=== PATIENT | female | born 1945 | race Caucasian/White ===

== ENCOUNTER → 2018-01-16 | Outpatient (CLI) | payer MEDICARE, OTHER ==
[2018-01-17 10:09] LABS: Alt. alternata IgE Class CLASS 0; Alternaria alternata IgE <0.35 kU/L (<0.35); Asperg. fumagatus IgE <0.35 kU/L (<0.35); Asperg. fumagatus IgE Class CLASS 0; Aureo. pullulans IgE <0.35 kU/L (<0.35); Birch(Com.Silvr) IgE <0.35 kU/L (<0.35); Birch(Com.Silvr) IgE Class CLASS 0; Candida albicans IgE Class CLASS 0; Clad herbarum IgE <0.35 kU/L (<0.35); Cottonwood IgE <0.35 kU/L (<0.35); Epicoccum purpurascens Class CLASS 0; Epicoccum purpurascens IgE <0.35 kU/L (<0.35); Maple (Box Elder) IgE <0.35 kU/L (<0.35); Maple (Box Elder) IgE Class CLASS 0; Mucor racemosus IgE <0.35 kU/L (<0.35); Mucor racemosus IgE Class CLASS 0; Oak IgE <0.35 kU/L (<0.35); Rhizopus nigricans IgE <0.35 kU/L (<0.35); S.rostrata/Helminth Class CLASS 0; S.rostrata/Helminth IgE <0.35 kU/L (<0.35); Sycamore(Mpl.Lf) IgE <0.35 kU/L (<0.35); Walnut Tree IgE <0.35 kU/L (<0.35); Walnut Tree IgE Class CLASS 0; White Ash IgE Class CLASS 0
[2018-01-17 10:10] LABS: Cat Epith & Dander IgE <0.35 kU/L (<0.35); Cat Epith & Dander IgE Class CLASS 0; Cockroach IgE <0.35 kU/L (<0.35); Com. Pigweed IgE <0.35 kU/L (<0.35); Com. Pigweed IgE Class CLASS 0; Dermato. Pteronyssinus IgE <0.35 kU/L (<0.35); Dermato. farinae IgE <0.35 kU/L (<0.35); Dermato. farinae IgE Class CLASS 0; Dog Dander IgE <0.35 kU/L (<0.35); English Plantain IgE Class CLASS 0; Johnson Grass IgE Class CLASS 0; Lamb's Quarter IgE <0.35 kU/L (<0.35); Lamb's Quarter IgE Class CLASS 0; Timothy Grass IgE <0.35 kU/L (<0.35)
== END | disposition home or self-care (01) ==
LOC: LABWHC1 10:22
PROVIDERS: ATTEND Otolaryngology
DX: L50.0 Allergic urticaria (principal); J30.89 Other allergic rhinitis; B44.89 Other forms of aspergillosis
CPT/HCPCS: 36415; 86003

== ENCOUNTER → 2018-04-14 | Outpatient (CLI) | payer MEDICARE, OTHER | END | disposition home or self-care (01) | LOC: LABWHC1 10:38 | PROVIDERS: ATTEND Orthopaedic Surgery | DX: Z01.812 Encounter for preprocedural laboratory examination (principal) | CPT/HCPCS: 87070 ==

== ENCOUNTER 2018-05-09 10:55 | Inpatient (IN) | payer MEDICARE, OTHER ==
[2018-05-04 15:12] VITALS: BMI 26.5
--- NOTE | 2018-05-08 09:35 | HP ---
HISTORY AND PHYSICAL CHIEF COMPLAINT: Left knee pain. HISTORY OF PRESENT ILLNESS: The patient is a 72-year-old retired female who presents with progressive left knee pain, worsening over the past several years. She has pain with weightbearing activities and at night. She has tried injections along with medications with only partial temporary relief. She notes the pain significantly limits her function and activities. PAST MEDICAL HISTORY: Significant for arthritis, prolapsed bladder and vaginal atrophy. PAST SURGICAL HISTORY: Significant for left knee arthroscopy, right total hip replacement and right knee arthroscopy. CURRENT MEDICATIONS: 1. Probiotic. 2. Aleve. She denies drug allergies. FAMILY HISTORY: Significant for heart disease and cancer. SOCIAL HISTORY: Significant for social alcohol use. 16 POINT REVIEW OF SYSTEMS: Otherwise reviewed and is noncontributory. PHYSICAL EXAMINATION: On examination, the patient is approximately 5 foot 2, 151 pounds of mesomorphic habitus. HEENT exam is nonfocal. Neck is supple. She has painless passive motion of her left hip. Straight leg raise is negative. Active motion left knee -10 to 135 degrees of flexion. She is tender about the medial joint line. She has a mild effusion. Collaterals are stable, Blanca is negative, Carlos's is equivocal. She has genu varum alignment. Her distal neurovascular exam appears intact in the left lower extremity. Weightbearing, notch, lateral and Merchant views of the left knee obtained in the office show severe medial and patellofemoral compartment narrowing. IMPRESSION: Left knee severe medial and patellofemoral compartment osteoarthrosis-symptomatic. RECOMMENDATIONS: I talked to the patient at length regarding her condition and treatment options. At this point, she is quite symptomatic despite conservative measures. We will plan to proceed with left total knee arthroplasty. We will institute DVT prophylaxis postoperatively. Risks and benefits were discussed at length in layman's terms. MMODL / IJN: [id number] /
[~2018-05-09 10:55] MED LIST: ACETAMINOPHEN TAB 500 MG TAB PO ONE; MELOXICAM 7.5 MG TAB PO ONE; TRANEXAMIC ACID 1,000 MG in SODIUM CHLORIDE 0.9% 50 ML IVPB ONE; ceFAZolin IN SWFI 2 GM/20 ML SYRINGE IVP ONE
[2018-05-09] MEDS ORDERED: DEXAMETHASONE SOD PHOSPHATE 10 MG/ML 1 ML VIAL IV ONE (12:30)
[2018-05-09] MEDS ORDERED: MIDAZOLAM 2 MG/2 ML VIAL IV PRN (12:30)
[2018-05-09] MEDS ORDERED: HYDROmorphone 1 MG/ML 1 ML SYRINGE IVP PRN ×3 (12:30→15:59)
[2018-05-09] MEDS ORDERED: SCOPOLAMINE 1.5MG/72HR PATCH TRANSDERM ONE (12:30)
[2018-05-09] MEDS ORDERED: LIDOCAINE 1% 20 ML VIAL (10MG/ML) FOR IV START INTRADERMA PRN (12:30)
[2018-05-09] MEDS ORDERED: ONDANSETRON 4 MG/2 ML VIAL IVP ONE (12:30)
[2018-05-09] MEDS: LACTATED RINGERS 1,000 ML IV SCH (12:32)
[2018-05-09] MEDS ORDERED: fentaNYL (PF) 50 MCG/ML 2 ML AMP IVP ONE (13:00)
[2018-05-09] MEDS ORDERED: ROPIVACAINE 246.25 MG, EPINEPHrine 0.5 MG, KETOROLAC 30 MG, cloNIDine HCL/PF 80 MCG, WA... MISCELLANE ONE ×5 (13:14)
[2018-05-09] MEDS ORDERED: ROPIVACAINE 1,100 MG, SODIUM CHLORIDE 0.9% 500 ML 330 ML MISCELLANE PRN ×2 (13:29)
--- NOTE | 2018-05-09 13:31 | P.ONQ ---
Anesthesiology Proc Note - PNB - Peripheral Nerve Block Performed Left Adductor Canal Infusion Time Out Performed: Yes Procedure Start Time: 13:00 Indication: Acute Post-Operative Pain, Analgesia Specifically requested for management of pain by DrAmie: Guilherme Rocha Sedation Type: Sedate with meaningful contact maintained Preparation: Sterile Prep Position: Supine Catheter Depth at Skin (cm): 6 Catheter: Indwelling Needle Types: Other (see comment) (Pajunk) Needle Size: 100mm (4") Needle Gauge: 18 Technique: Ultrasound Injectate: 0.5% Ropivacaine (see comment for volume) (20cc) Blood Aspirated: No Pain Paresthesia on Injection Noted: No Resistance on Injection: Normal Events: Uneventful and Well Tolerated
[2018-05-09] MEDS ORDERED: ePHEDrine SULFATE/0.9% NACL/PF 50 MG/5 ML SYRINGE IV ONE (14:10)
[2018-05-09] MEDS ORDERED: TRANEXAMIC ACID 1,000 MG/10 ML VIAL ONE (14:10)
[2018-05-09] MEDS ORDERED: SODIUM CHLORIDE 0.9% 100 ML BAG ONE (14:10)
[2018-05-09] MEDS ORDERED: ROPIVACAINE 5 MG/ML 30 ML VIAL ONE (14:10)
[2018-05-09] MEDS ORDERED: fentaNYL (PF) 50 MCG/ML 2 ML AMP ONE (14:10)
[2018-05-09] MEDS ORDERED: PROPOFOL 10 MG/ML 20 ML VIAL IV ONE (14:10)
[2018-05-09] MEDS ORDERED: MIDAZOLAM 2 MG/2 ML VIAL ONE (14:10)
[2018-05-09] MEDS ORDERED: KETAMINE 10 MG/ML 20 ML VIAL ONE (14:10)
[2018-05-09] MEDS ORDERED: ceFAZolin 3,000 MG in SODIUM CHLORIDE 0.9% IRRIGATIO 3,000 ML IRRIGATION ONE (14:42)
[2018-05-09] MEDS ORDERED: LACTATED RINGERS 1,000 ML IV ONE (15:35)
[2018-05-09] MEDS ORDERED: ONDANSETRON 4 MG/2 ML VIAL IVP PRN (15:59)
[2018-05-09] MEDS ORDERED: traMADol 50 MG TAB PO PRN (15:59)
[2018-05-09] MEDS ORDERED: HYDROcodone/APAP 5-325MG 1 EACH TAB PO PRN (15:59)
[2018-05-09] MEDS ORDERED: NALOXONE 0.4 MG/ML 1 ML VIAL IV PRN (15:59)
[2018-05-09] MEDS ORDERED: MAGNESIUM HYDROXIDE 2,400 MG/10 ML CUP PO PRN (15:59)
--- NOTE | 2018-05-09 16:14 | P.OP ---
Date of Procedure: 05/09/18 Preoperative Diagnosis: Severe left knee tricompartmental osteoarthrosis Postoperative Diagnosis: Same Procedure(s) Performed: Left total knee arthroplastycruciate retainingcemented Implants: Depuy Attune size 5 cemented femoral component, size 4 cemented tibial component , 9 mm articular surface, 35 mm cemented patellar component. This was a cruciate retaining implant. Anesthesia: spinal Surgeon: Guilherme Rocha Labor Relations Specialist #1: Parviz Abreu Estimated Blood Loss (ml): 50 Pathology: other (Bone fragments) Condition: stable Disposition: PACU Indications for Procedure: The patient's a 72-year-old female who presents with progressive left knee pain secondary to osteoarthrosis despite conservative measures. A discussion of the risks and benefits of operative intervention versus continued conservative measures was made with patient. She opted to proceed with surgery. Operative risks to include infection, neurovascular injury, development of blood clots, possible fracture, possible component loosening and need for subsequent procedures was discussed. Informed consent was obtained. Operative Findings: As below Description of Procedure: The patient was brought to the operating room, and after induction of spinal anesthesia the left lower extremity was prepped and draped in a normal fashion. The tourniquet was inflated to 270 mmHg. A longitudinal incision extending 3 finger breaths above this. We'll patella extending to the medial aspect the tibial tubercle was then made. The skin and subcutaneous tissues were divided sharply. Electrocautery was used for hemostasis. A medial parapatellar arthrotomy was then performed. The medial soft tissues to include the superficial and deep portions of the medial collateral ligament as well as the medial hamstring tendons were elevated subperiosteally. The proximal medial tibia osteophytes were carefully removed. The patella was everted. The knee was flexed. A portion of the retropatellar fat pad was excised sharply. The anterior cruciate ligament was sacrificed. A starting hole was made in the distal femur 1 cm anterior to the posterior cruciate origin. An intramedullary femoral guide was gently inserted planning on 5 valgus distal cut with 9 mm distal resection. The cutting block was pinned in place. The distal cut was then made. The posterior referencing sizing guide was utilized. 3 of external rotation was built into the system and verified off the trans- epicondylar axis and the posterior condyles. I felt size 5 was most appropriate. The cutting block was pinned in place. The anterior, posterior, and chamfer cuts were then made. The bone fragments were removed. A sulcus cut was then made with the appropriate guide. The trial size 5 femoral component was then placed and was fully seated. There was good anterior to posterior and medial to lateral fit. The distal peg holes were then drilled. The trial component was then removed. Attention was then paid towards preparing the proximal tibia. An extra medullary guide was utilized in line with the tibial shaft and second metatarsal distally. A 7 posterior slope was planned. I planned on 2 mm resection from the medial compartment. The cutting block was pinned in place. The proximal tibial cut was then made. The bone was removed in one fragment. The remnants of the medial and lateral menisci were excised the capsule junction with electrocautery. The tibia sized most appropriately at size 4. The posterior osteophytes off the distal femur were carefully removed with a curved osteotome. The trial tibial and femoral components were placed along with a 9 millimeters articular surface. I was able to obtain full flexion and extension with good stability with varus and valgus stress. After several flexion and extension cycles, the tibial rotation was marked with electrocautery in line with the medial one third of the tibial tubercle. Attention was then paid towards preparing the patella. A patella reamer was utilized taking this down to 14 mm of bone stock. A good flush cut was made. The patella sized most appropriately at 35 millimeters. The peg holes were then drilled. The trial component was placed. The knee was taken through a range of motion. I had good patellofemoral tracking with no hands technique. The trial components were then removed. The tibia was prepared in the appropriate rotation with appropriate drill and keel punch. The flexion and extension gaps were checked and felt to be symmetric. The posterior soft tissues were injected with ropivacaine. The bony surfaces were prepared with pulsatile lavage and dried. The deep tibial component was then cemented in place and was fully seated. Excess cement was removed. The femoral component was cemented in place and was fully seated. Again excess cement was removed. The trial 9 millimeters surface was then inserted in the knee was put in full extension. The patella component was cemented in place. After the cement had sufficiently hardened, the knee was again taken through a range of motion. Again there was good stability in flexion and extension with varus and valgus stress. The trial articular surface was then removed. The final articular surface was placed and was impacted. Care was taken to avoid any soft tissue interposition. Pulsatile lavage was again utilized. The tourniquet was deflated with approximately 70 minutes total tourniquet time. There was minimal drainage therefore a deep drain was not placed. The medial parapatellar arthrotomy was then closed with #2 Ethibond suture. The subcutaneous tissues were reapproximated interrupted 2-0 Vicryl sutures. The skin was reapproximated with 3-0 subarticular strata fix suture. Skin tape and adhesive was applied. A sterile dressing was applied. The patient was then awoken from sedation and transferred to recovery room in good condition. Blood loss was estimated at 50 milliliters. No complications were incurred. Sponge and needle counts were correct at the end the case. Jerry NG assisted during the major components this case to include exposure, bone resection, and implantation.
--- NOTE | 2018-05-09 16:28 | XR ---
EXAMINATION TYPE: XR knee limited LT DATE OF EXAM: 05/09/2018 CLINICAL HISTORY: Postoperative evaluation Two views of the left knee are submitted. Identified are changes of total knee arthroplasty with fem oral and tibial components appearing well seated. Postsurgical soft tissue changes are noted. Align ment is anatomic.
[2018-05-09 17:07] VITALS: RESP 16
[2018-05-09] MEDS ORDERED: SENNOSIDES-DOCUSATE SODIUM 1 EACH TAB PO SCH (21:00)
[2018-05-09] MEDS: ceFAZolin IN SWFI 2 GM/20 ML SYRINGE IVP SCH (21:59)
[2018-05-10] MEDS: HYDROcodone/APAP 5-325MG 1 EACH TAB PO PRN ×2 (04:43→10:36)
[2018-05-10] MEDS: ceFAZolin IN SWFI 2 GM/20 ML SYRINGE IVP SCH (04:46)
--- NOTE | 2018-05-10 06:39 | CONS ---
CONSULTATION DATE OF CONSULTATION: 05/09/2018 REASON FOR CONSULTATION: Medical management requested by Dr. Rocha. CONSULTATION: This is a very pleasant 72-year-old patient who follows with Dr. Tipton. Has undergone left total knee arthroplasty. Postprocedure pain is controlled. No nausea, vomiting. Did tolerate her supper. Lying in bed. Chronic stable medical conditions include osteoarthritis, prolapsed bladder, uses a pessary and chronic constipation. Pain is controlled. No cardiac history. REVIEW OF SYSTEMS: CONSTITUTIONAL: None. HEENT: None. RESPIRATORY: None. CARDIOVASCULAR: None. GASTROINTESTINAL: Chronic constipation, takes MiraLAX. GENITOURINARY: Urinary incontinence. MUSCULOSKELETAL: Arthritic pain in different joints. DERMATOLOGICAL: None. HEMATOLOGIC: None. LYMPHATICS: None. PSYCHIATRY: None. NEUROLOGICAL: None. PAST MEDICAL HISTORY: Past medical history of prolapsed bladder, uses a pessary, osteoarthritis, chronic constipation. PAST SURGICAL HISTORY: Right hip replacement, bilateral knee arthroscopy, right thumb trigger finger. SOCIAL HISTORY: Patient smoked about half a pack a day for 25 years, stopped in 2005. Drinks about average of 5 drinks a week. Lives with her . FAMILY HISTORY: Family history of breast cancer. HOME MEDICATIONS: 1. Naproxen 220 mg b.i.d. p.r.n. 2. Probiotic 1 capsule p.o. daily. 3. Emergency C one tablet p.o. daily. ALLERGIES: None. PHYSICAL EXAMINATION: On examination, temperature 97.4, pulse 91, respirations 16, blood pressure 128/82, pulse ox 96% on room air. GENERAL APPEARANCE: Average build, lying in bed, comfortable, awake. EYES: Pupils equal. Conjunctivae normal. Wearing eyeglasses. HENT: External appearance of nose and ears normal. Oral cavity normal. NECK: JVD not raised. Mass not palpable. RESPIRATORY: Effort normal. Lungs are clear. CARDIOVASCULAR: First and second sounds normal. No edema. ABDOMEN: Soft, nontender. Liver and spleen not palpable. LYMPHATIC: No lymph node palpable in the neck or axillae. PSYCHIATRY: Alert and oriented x3. Mood and affect normal. NEUROLOGICAL: Pupils equal. Cranial nerves grossly intact. Power and sensation grossly intact. MUSCULOSKELETAL: Evidence of OA especially in the hands. INVESTIGATIONS: No blood work. ASSESSMENT: 1. Left total knee arthroplasty. 2. Primary osteoarthritis. 3. Chronic constipation, takes laxatives, idiopathic. 4. Prolapsed urinary bladder for which patient uses a pessary. Chronic urinary incontinence from the same. PLAN: Patient's pain is well controlled. The patient is on Xarelto for DVT prophylaxis. Getting some IV fluids. We will start the patient on Metamucil. Care was discussed with the patient. Questions were answered. Thank you Dr. Rocha. AARON / BHUPENDRA: [id number] /
[2018-05-10] MEDS: LACTATED RINGERS 1,000 ML IV SCH (07:52)
[2018-05-10 08:31] VITALS: PULSE 74
[2018-05-10 08:49] LABS: Basophils % (A) 0 %; Eosinophils % (A) 0 %; HCT 33.5 % (34.0-46.0); HGB 10.8 gm/dL (11.4-16.0); Lymphocytes # (A) 1.5 k/uL (1.0-4.8); Lymphocytes % (A) 15 %; MCH 30.8 pg (25.0-35.0); MCHC 32.1 g/dL (31.0-37.0); MCV 95.9 fL (80.0-100.0); Mean Platelet Volume 6.9; Monocytes # (A) 0.4 k/uL (0-1.0); Monocytes % (A) 4 %; Neutrophils # (A) 8.1 k/uL (1.3-7.7); Neutrophils % (A) 80 %; Platelet Count 226 k/uL (150-450); RBC 3.49 m/uL (3.80-5.40); RDW 13.6 % (11.5-15.5); WBC 10.1 k/uL (3.8-10.6)
[2018-05-10] MEDS ORDERED: PSYLLIUM HUSK 100% 6 GM PACKET PO SCH (09:00)
[2018-05-10] MEDS ORDERED: RIVAROXABAN 10 MG TAB PO SCH (09:00)
--- NOTE | 2018-05-10 09:36 | P.PN ---
Progress Note - Text 05/10 704am 72 yr year-old female status post total knee replacement by Dr. Rocha. Patient has an On-Q pump for postop pain control with the solution running at 8 mL an hour with a pain score of 4. She's been out of bed and ambulating well. Plan to continue On-Q pump infusion
--- NOTE | 2018-05-10 12:01 | P.PN ---
Subjective Progress Note Date: 05/10/18 Principal diagnosis: Status post left total knee arthroplasty Patient is seen today resting in her hospital bed, she appears comfortable. Her pain is well-controlled. She is urinating on her own. Denies any headaches , lightheadedness, chest pain or shortness of breath. Objective - Vital Signs Vital signs: Vital Signs Temp 97.4 F L 05/10/18 08:00 Pulse 74 05/10/18 08:00 Resp 16 05/10/18 01:10 BP 102/68 05/10/18 08:00 Pulse Ox 96 05/10/18 08:00 Intake & Output 05/09/18 05/10/18 05/10/18 18:59 06:59 18:59 Intake Total 1051 560 Output Total 50 Balance 1001 560 Weight 68.039 kg Intake: IV 1051 Intake, IV Titration 560 Amount Lactated Ringers 1,000 ml 560 @ 0 mls/hr IV .[facility] Rx#:[id number] Output: Estimated Blood Loss 50 Other: # Voids 1 - Exam Left lower extremity: Incision is clean, dry, and intact. The exofin fusion tape is in good condition. There is minimal soft tissue swelling and ecchymosis surrounding the medial and lateral aspects of the incision. Calf is soft, no tenderness with palpation. Plantar flexion, dorsiflexion, EHL, FHL are intact. Sensory exam to light touch throughout the extremity is intact, dorsal pedis pulses 2+. - Labs CBC & Chem 7: 05/10/18 06:33 Labs: Abnormal Lab Results - Last 24 Hours (Table) 05/10/18 Range/Units 06:33 RBC 3.49 L (3.80-5.40) m/uL Hgb 10.8 L (11.4-16.0) gm/dL Hct 33.5 L (34.0-46.0) % Neutrophils # 8.1 H (1.3-7.7) k/uL Assessment and Plan Plan: Assessment: Postoperative day #1 status post left total knee arthroplasty Plan: Pain control, continue current oral medication GI and DVT prophylaxis, plan for Eliquis 2.5mg bid for 2 weeks Medical recommendations Wound care instructions were discussed Home therapy and nursing after discharge Discharge planning: Plan for discharge home today Time with Patient: Less than 30
--- NOTE | 2018-05-10 12:16 | P.DS ---
Providers Date of admission: 05/09/18 11:44 Expected date of discharge: 05/10/18 Attending physician: Guilherme Rocha Consults: 05/09/18 15:59 Consult Physician Routine Consulting Provider: Dany Tipton Reason/Comments: medical management Do you want consulting provider notified?: Yes Primary care physician: Dany Tipton Hospital Course: Date of admission: 05/09/2018 Date of discharge: 05/10/2018 Admission diagnosis: Status post left total knee arthroplasty Discharge diagnosis: Same Attending physician: Dr. Rocha Surgical procedures: Left total knee arthroplasty Brief history: Patient is a 72-year-old female with a history of with progressive primary left knee osteoarthritis. At this point patient has failed conservative treatment measures and has opted to proceed with a elective left total knee arthroplasty. Hospital course: Details of patient's surgery can be found in operative report. Patient tolerated the procedure well and was subsequently transported to orthopedic floor. Patient's orthopeidc and medical care was provided daily. Patient had daily laboratory tests performed for evaluation of overall blood counts. Patient had daily physical therapy to include strengthening range of motion as well as education with walker ambulation. Patient had daily CPM usage as part of their physical therapy program. Patient was treated with Xarelto for their postoperative DVT prophylaxis during their inpatient stay. Patient was noted to have a relatively uneventful postoperative course. Patient reported satisfactory pain control with oral pain medications by postoperative day 0. Patient showed satisfactory progress with physical therapy. Patient moved steadily through the program and had no difficulty meeting the goals by postoperative day 1. Given patient's otherwise satisfactory course and having met physical therapy goals, plan is to discharge patient home on postoperative day 1. Discharge condition/disposition: Patient will be discharged home in stable condition. Discharge medications: Instructions are given on resumption of patient's normal daily medications per primary care recommendation, in addition patient will be prescribed Honeydew 5 mg/325 mg, tramadol 50 mg, Eliquis 2.5mg. Discharge instructions: 1. Wound care and infection precautions, keep incision dry and covered while showering, no lotions, creams, moisturizers. No soaking, tubs, pools, hottubs. Do not scrub over the incision. 2. Weight-bear as tolerated with walker / cane until follow-up. 3. Ice and elevate when necessary. Do not exceed 20 minutes per hour with ice pack. 4. Utilize compression sleeve until seen at first follow up appointment. 5. Visiting nursing care. 6. Home physical therapy including home CPM. 7. Pain meds and anticoagulants per prescription. 8. Pain medication has potential to cause constipation. Increase oral fluid and fiber intake. Contact primary care provider if you have not had a bowel movement within 48 hours after discharge 9. No anti-inflammatory medication until discussed at first post operative visit, this including Motrin, Aleve, Mobic, Diclofenac. 10. Follow up in office at 2 weeks postop with Jerry Abreu PA-C 11. Follow up with your primary care doctor 7-10 days after discharge. 12. Contact [facility] with any questions, . Procedures: Left total knee arthroplasty Patient Condition at Discharge: Good Plan - Discharge Summary Discharge Rx Participant: Yes New Discharge Prescriptions: New Psyllium Husk (with Sugar) [Metamucil Powder] 6 gm PO DAILY #1 gm Apixaban [Eliquis] 2.5 mg PO BID #28 tab Hydrocodone/Acetaminophen [Honeydew 5-325] 1 - 2 each PO Q6HR PRN #40 tab PRN Reason: Pain traMADol HCl [Ultram] 50 mg PO Q6H PRN #28 tab PRN Reason: Pain Continue L.acidoph,Paracasei, B.lactis [Probiotic] 1 cap PO DAILY No Action Naproxen Sodium [Aleve] 220 mg PO BID PRN PRN Reason: Pain Emergency C 1 tab PO DAILY Discharge Medication List Emergency C 1 tab PO DAILY 05/04/18 [History] L.acidoph,Paracasei, B.lactis [Probiotic] 1 cap PO DAILY 05/04/18 [History] Naproxen Sodium [Aleve] 220 mg PO BID PRN 05/04/18 [History] Psyllium Husk (with Sugar) [Metamucil Powder] 6 gm PO DAILY #1 gm 05/09/18 [Rx] Apixaban [Eliquis] 2.5 mg PO BID #28 tab 05/10/18 [Rx] Hydrocodone/Acetaminophen [Honeydew 5-325] 1 - 2 each PO Q6HR PRN #40 tab 05/10/18 [Rx] traMADol HCl [Ultram] 50 mg PO Q6H PRN #28 tab 05/10/18 [Rx] Follow up Appointment(s)/Referral(s): [facility] [NON-STAFF] - [facility]eded [facility] [[facility]] - As Needed Parviz Abreu, PAC [PHYSICIAN [employer]CEL[employer] BUILDUP ASSISTANT] - 2 Weeks Activity/Diet/Wound Care/Special Instructions: Orthopedic Discharge Instructions: 1. Wound care and infection precautions, keep incision dry and covered while showering, no lotions, creams, moisturizers. No soaking, pools, hot tubs. Do not scrub over incision. 2. Weight-bear as tolerated with walker / cane until follow-up. 3. Ice and elevate when necessary. Do not exceed 20 minutes per hour with ice pack. 4. Utilize compression sleeve until seen at first follow up appointment. 5. Pain meds and anticoagulants per prescription. 6. Pain medication has potential to cause constipation. Increase oral fluid and fiber intake. Contact primary care provider if you have not had a bowel movement within 48 hours after discharge. 7. No anti-inflammatory medication until discussed at first post operative visit, this including Motrin, Aleve, Mobic, Diclofenac, Aspirin. 8. Follow up in office at 2 weeks postop with Jerry Abreu PA-C 9. Follow up with your primary care doctor 7-10 days after discharge. 10. Contact [facility] with any questions, . Discharge Disposition: HOME WITH HOME HEALTH SERVICES
[2018-05-10 15:34] VITALS: BP 108/68; TEMP 97.8
--- NOTE | 2018-05-10 22:33 | PN ---
PROGRESS NOTE DATE OF SERVICE: 05/10/2018 PRESENTING COMPLAINT: Left knee surgery. INTERVAL HISTORY: Patient is doing well, up in the hallway today with a walker, feeling well. No new issues. Pain is controlled. No nausea or vomiting. Did tolerate her breakfast. REVIEW OF SYSTEMS: Done for constitutional, cardiovascular, GI, pulmonary; relevant findings as above. CURRENT MEDICATIONS: Reviewed. PHYSICAL EXAMINATION: Temperature 97.4, pulse 74, respiration 16, blood pressure 102/68, pulse ox 96%. GENERAL APPEARANCE: Comfortable. EYES: Pupils equal. Conjunctivae normal. NECK: JVD not raised. Mass not palpable. RESPIRATORY: Effort normal. Lungs are clear. CARDIOVASCULAR: First and second sounds normal. No edema. ABDOMEN: Soft, non-tender. Liver and spleen not palpable. PSYCHIATRY: Alert and oriented x3. Mood and affect normal. INVESTIGATIONS: White count 10.1, hemoglobin 10.8. ASSESSMENT: 1. Left total knee arthroplasty. 2. Primary osteoarthritis. 3. Chronic constipation; takes laxatives; idiopathic. 4. Prolapsed urinary bladder, for which patient uses a pessary. 5. Chronic urinary incontinence from above. PLAN: Stable. Continue current medication and treatment plan. Should follow up with PCP. MMODL / IJN: [id number] /
== END 2018-05-10 16:29 | disposition home health service (06) | DRG 470 ==
LOC: 2ORMAIN 11:44 → 4SSUR 16:23
PROVIDERS: ADMIT Orthopaedic Surgery; ATTEND Orthopaedic Surgery
PROC: 0SRD0J9 Replacement of Left Knee Joint with Synthetic Substitute, Cemented, Open Approach (ICD-10-PCS; principal; 2018-05-09 13:50)
DX: M17.12 Unilateral primary osteoarthritis, left knee (principal); E04.1 Nontoxic single thyroid nodule; E78.5 Hyperlipidemia, unspecified; K59.09 Other constipation; N81.10 Cystocele, unspecified; N39.498 Other specified urinary incontinence; N95.2 Postmenopausal atrophic vaginitis; Z79.899 Other long term (current) drug therapy; Z96.641 Presence of right artificial hip joint; Z87.891 Personal history of nicotine dependence; Z80.3 Family history of malignant neoplasm of breast
CPT/HCPCS: 85025; 88300

== ENCOUNTER → 2018-11-07 | Outpatient (CLI) | payer MEDICARE, OTHER ==
--- NOTE | 2018-11-08 12:13 | MM ---
Reason for exam: screening (asymptomatic). Last mammogram was performed 1 year and 6 months ago. History: Patient is postmenopausal. Family history of breast cancer in mother at age 72. Benign excisional biopsy of both breasts, 1999. Benign excisional biopsy of both breasts, 1995. Took estrogen for 8 years beginning at age 50. Took progesterone for 4 years. Physical Findings: A clinical breast exam by your physician is recommended on an annual basis and results should be correlated with mammographic findings. MG 3D Screening Mammo W/Cad Bilateral CC and MLO view(s) were taken. Prior study comparison: May 11, 2017, bilateral MG 3d screening mammo w/cad. April 07, 2016, bilateral MG 3d screening mammo w/cad. The breast tissue is heterogeneously dense. This may lower the sensitivity of mammography. There are benign appearing round calcifications bilaterally. There is no discrete abnormality. ASSESSMENT: Benign, BI-RAD 2 RECOMMENDATION: Routine screening mammogram of both breasts in 1 year.
== END | disposition home or self-care (01) ==
LOC: RADMAMWWP 07:26
PROVIDERS: ATTEND Family Medicine
DX: Z12.31 Encounter for screening mammogram for malignant neoplasm of breast (principal)
CPT/HCPCS: 77063; 77067

== ENCOUNTER → 2020-03-18 | Outpatient (CLI) | payer MEDICARE, OTHER | END | disposition home or self-care (01) | LOC: LABPAT 14:20 | PROVIDERS: ATTEND Obstetrics & Gynecology | DX: Z53.9 Procedure and treatment not carried out, unspecified reason (principal) | CPT/HCPCS: 80051; 81001; 82565; 84520; 85025; 86850; 86900; 86901; 87086; 93005 ==

== ENCOUNTER 2020-03-24 05:41 | Day surgery (SDC) | payer MEDICARE, OTHER ==
[2020-03-18 15:41] LABS: Basophils # (A) 0.1 k/uL (0-0.2); Basophils % (A) 1 %; Eosinophils # (A) 0.2 k/uL (0-0.7); Eosinophils % (A) 3 %; HCT 39.8 % (34.0-46.0); Lymphocytes # (A) 2.7 k/uL (1.0-4.8); Lymphocytes % (A) 41 %; MCH 31.3 pg (25.0-35.0); MCHC 32.6 g/dL (31.0-37.0); MCV 96.2 fL (80.0-100.0); Mean Platelet Volume 7.1; Monocytes # (A) 0.2 k/uL (0-1.0); Monocytes % (A) 3 %; Neutrophils # (A) 3.4 k/uL (1.3-7.7); Neutrophils % (A) 51 %; Platelet Count 215 k/uL (150-450); RBC 4.14 m/uL (3.80-5.40); WBC 6.6 k/uL (3.8-10.6)
[2020-03-18 15:53] LABS: Appearance,Urine Clear (Clear); Bilirubin,Urine Negative (Negative); Blood,Urine Trace (Negative); Color,Urine Yellow; Glucose,Urine (UA) Negative (Negative); Ketones,Urine 1+ (Negative); Leukocyte Esterase,Urine Small (Negative); Mucus,Urine Rare /hpf; Nitrite,Urine Negative (Negative); PH, Urine 5.5 (5.0-8.0); Protein,Urine Negative (Negative); RBC,Urine 4 /hpf (0-5); Specific Gravity,Urine 1.015 (1.001-1.035); Urobilinogen,Urine <2.0 mg/dL (<2.0); WBC,Urine 4 /hpf (0-5)
[2020-03-18 15:56] LABS: African American GFR (CKD) >90 (>60 ml/min/1.73 sqM); Anion Gap 5 mmol/L; Blood Urea Nitrogen 12 mg/dL (7-17); Carbon Dioxide 27 mmol/L (22-30); Chloride 105 mmol/L (98-107); Non-African American GFR(CKD) 79 (>60 ml/min/1.73 sqM); Potassium 4.3 mmol/L (3.5-5.1); Sodium 137 mmol/L (137-145)
[2020-03-19 14:28] VITALS: BMI 27.7
[2020-03-24] MEDS ORDERED: ONDANSETRON 4 MG/2 ML VIAL IVP ONE (06:02)
[2020-03-24] MEDS ORDERED: HYDROmorphone 0.5 MG/0.5 ML SYRINGE IVP PRN (06:02)
[2020-03-24] MEDS ORDERED: DEXAMETHASONE SOD PHOSPHATE 10 MG/ML 1 ML VIAL IV ONE (06:02)
[2020-03-24] MEDS ORDERED: MIDAZOLAM 2 MG/2 ML VIAL IV PRN (06:02)
[2020-03-24] MEDS ORDERED: ONDANSETRON 4 MG/2 ML VIAL ONE (06:04)
[2020-03-24] MEDS ORDERED: LIDOCAINE 1% (10MG/ML) FOR IV START INTRADERMA ONE (06:10)
[2020-03-24] MEDS ORDERED: LACTATED RINGERS 1,000 ML IV ONE (06:10)
[2020-03-24] MEDS ORDERED: DEXAMETHASONE SOD PHOS (MDV) 100 MG/10 ML VIAL IVP ONE (06:10)
[2020-03-24] MEDS ORDERED: fentaNYL (PF) 50 MCG/ML 2 ML AMP INTRATHECA ONE (06:58)
[2020-03-24] MEDS ORDERED: SUCCINYLCHOLINE CHLORIDE 100 MG/5 ML SYR IV ONE (07:26)
[2020-03-24] MEDS ORDERED: fentaNYL (PF) 50 MCG/ML 2 ML AMP ONE (07:26)
[2020-03-24] MEDS ORDERED: MIDAZOLAM 2 MG/2 ML VIAL ONE (07:26)
[2020-03-24] MEDS ORDERED: PROPOFOL 10 MG/ML 20 ML VIAL IV ONE (07:26)
[2020-03-24] MEDS ORDERED: LIDOCAINE 1% INJ 10MG/ML (20 ML MDV) ONE (07:26)
[2020-03-24] MEDS ORDERED: VASOPRESSIN 20 UNIT/ML 1 ML VIAL SQ ONE (07:52)
[2020-03-24] MEDS ORDERED: BACITRACIN ZINC 500 UNIT/GM OINT 28.4 GM TUBE TOPICAL ONE ×2 (07:53→08:32)
[2020-03-24] MEDS ORDERED: diphenhydrAMINE 50 MG/ML 1 ML VIAL IVP PRN (08:53)
[2020-03-24] MEDS ORDERED: METOCLOPRAMIDE 5 MG/ML 2 ML VIAL IVP PRN (08:53)
[2020-03-24] MEDS ORDERED: SIMETHICONE 80 MG CHEWABLE PO PRN (08:53)
[2020-03-24] MEDS ORDERED: ONDANSETRON 4 MG/2 ML VIAL IVP PRN (08:53)
--- NOTE | 2020-03-24 08:54 | P.OP ---
Date of Procedure: 03/24/20 Preoperative Diagnosis: Symptomatic uterine prolapse and cystocele Postoperative Diagnosis: Same, normal-appearing ovaries bilaterally. Mild rectocele. Procedure(s) Performed: Vaginal hysterectomy, anterior colporrhaphy. Anesthesia: GETA Surgeon: Adriana Betancourt Photographer'S Model #1: Stephanie Heaton Estimated Blood Loss (ml): 50 IV fluids (ml): 600 Urine output (ml): 110 Pathology: other (Cervix and uterus) Condition: stable Disposition: PACU Operative Findings: Normal-appearing ovaries bilaterally Description of Procedure: Patient is brought to the operating suite where a general anesthetic is administered after spinal with Duramorph was given in the preoperative area. Antibiotics are given. The appropriate timeout is performed to assure proper patient and procedural identification. Patient is placed in the dorsal lithotomy position and the cervix, vagina, and perineal bodies are all prepped and draped in the usual sterile fashion. The bladder is drained for approximately 110 mL of clear yellow urine. Weighted speculum was placed into the vagina. Anterior lip of the cervix is grasped with a double-tooth tenaculum. Cervix is circumferentially injected with dilute Pitressin. A [place] blade scalpel is used to incise the mucosa circumferentially with a V positioning at 6:00. Sponge rolled finger is used to sweep the mucosa well from the operative plane. Care is taken to at all times keep you cholecystectomy way to avoid bladder and/or ureteral injury. Peritoneum is entered at 6:00 and suture tied with 2-0 Vicryl held with a hemostat. The large billed speculum is then placed into the peritoneal cavity. Baltazar clamp is used over the right uterosacral cardinal ligament complex, this is clamped cut and suture ligated and held with a hemostat. Same procedure is carried out contralaterally. Uterine vasculature is skeletonized, clamped cut and suture ligated. 2 additional pedicles are taken superior to the vessels. Anterior peritoneum was entered at 12:00. Uterus is "walked out" posteriorly. Baltazar clamps are used across the final pedicles and the uterus and cervix are removed. 0 Vicryl sutures used across these pedicles, they are suture ligated, flashed, and retied for excellent hemostasis. Sponge stick is then used and both ovaries are noted to be high in the peritoneal cavity and within normal limits to inspection, left in situ per the patient's wishes. Vacuum is now changed to the shallow billed speculum. The 20 peritoneal stitch is brought around in a circumferential fashion to close the peritoneum. There is no bowel or bladder involvement. The uterosacral cardinal ligaments are now brought across to incorporate the opposite ligament as well as vaginal mucosa. An additional [id number]-vb-[id number] suture used inferior to this to close the vaginal cuff. The anterior mucosa is held with Allis clamps and the anterior repair is now commenced. The mucosa is injected in the midline with the same dilute Pitressin solution. Metzenbaum scissors are used to undermine the mucosa and it is incised to approximately 1.5 cm inferior to the urethra. A sponge rolled finger is used to sweep the mucosa from the underlying fascial plane. Israel catheter is then placed. 2-0 Vicryl sutures used in an interrupted fashion to bring the fascial edges together in the midline. The mucosa is trimmed with Metzenbaum scissors. 2-0 Vicryl is used in a running fashion now to close the anterior repair. Hemostasis is excellent. Israel is noted to be draining clear urine. The vagina is packed with a 1 inch iodophor gauze with bacitracin. All sponge needle and enhancement counts are correct. Patient is brought back to the recovery room in very good condition with stable vital signs including a blood pressure 110/60, pulse 55, 98% O2 saturation.
[2020-03-24] MEDS ORDERED: MORPHINE SULFATE 2 MG/ML SYRINGE IVP PRN (10:12)
[2020-03-24] MEDS ORDERED: NALOXONE 0.4 MG/ML 1 ML VIAL IV PRN (10:12)
[2020-03-24] MEDS: LACTATED RINGERS 1,000 ML IV SCH (11:50)
[2020-03-24] MEDS: IBUPROFEN 600 MG TAB PO PRN (20:52)
[2020-03-24 22:53] VITALS: BP 117/74; PULSE 83; RESP 18; TEMP 98.5
[2020-03-25] MEDS: LACTATED RINGERS 1,000 ML IV SCH (06:54)
--- NOTE | 2020-03-25 07:51 | P.DS ---
Providers Date of admission: 03/24/20 Expected date of discharge: 03/25/20 Attending physician: Adriana Betancourt Primary care physician: Stated None Hospital Course: This is a 74-year-old female who presented with symptomatic uterine prolapse and cystocele. After thorough discussion, and after years of pessary use, she elected to proceed with surgical repair. Please see dictated history and physical for details. Patient underwent a vaginal hysterectomy and anterior colporrhaphy under my care yesterday. She did well intraoperatively, ovaries were left in situ per our preoperative discussion. Please see dictated delivery note for details. This morning the patient is doing well. Vaginal packing and Israel catheter had been removed. Diet has been advanced. She is allowed to shower. There is only scant vaginal drainage. Patient has no pain. She is judged to be in very good condition for discharge home. We will measure first voided and postvoid residual. If less than 100, she will go home later today. She will follow-up with me in the office in 2 weeks. She is reminded no intercourse, tampons, douching, heavy lifting, no driving. In 2 weeks we will discuss vaginal estrogen. She will call with any fevers shakes or chills, vaginal bleeding, with any pain not alleviated by Aleve, or indeed with any concerns. She is in very good condition for discharge home. Assessment: Doing well postoperative day #1 Patient Condition at Discharge: Good Plan - Discharge Summary Discharge Rx Participant: No New Discharge Prescriptions: No Action Loratadine [Claritin] 10 mg PO DAILY Fluticasone Nasal [place] [Flonase Nasal [place]] 2 spr EA NOSTRIL DAILY Discharge Medication List Fluticasone Nasal [place] [Flonase Nasal [place]] 2 spr EA NOSTRIL DAILY 03/19/20 [History] Loratadine [Claritin] 10 mg PO DAILY 03/19/20 [History] Follow up Appointment(s)/Referral(s): Adriana Betancourt MD [STAFF PHYSICIAN] - 2 Weeks Discharge Disposition: HOME SELF-CARE
--- NOTE | 2020-03-25 08:19 | P.PN ---
Progress Note - Text Date:[03/25/2020] Time:[6 58] The patient is status post vaginal hysterectomy. Vital signs stable VAS:[0-10] Patient has no complaints of pain. The patient incurred some minimal itching yesterday, this itching is now subsiding. Pain meds to be managed by service.
[2020-03-25] MEDS: IBUPROFEN 600 MG TAB PO PRN (08:41)
== END 2020-03-25 12:38 | disposition home or self-care (01) ==
LOC: OR 05:41 → 4FBP 08:58 → OR 03-25 12:38
PROVIDERS: ATTEND Obstetrics & Gynecology
DX: N81.4 Uterovaginal prolapse, unspecified (principal); N72 Inflammatory disease of cervix uteri; I10 Essential (primary) hypertension; M19.90 Unspecified osteoarthritis, unspecified site; J30.2 Other seasonal allergic rhinitis; Z98.891 History of uterine scar from previous surgery; Z98.890 Other specified postprocedural states; Z82.49 Family history of ischemic heart disease and other diseases of the circulatory system; Z81.8 Family history of other mental and behavioral disorders; Z80.3 Family history of malignant neoplasm of breast; Z80.41 Family history of malignant neoplasm of ovary; Z80.42 Family history of malignant neoplasm of prostate; Z82.61 Family history of arthritis
CPT/HCPCS: 88305; 58260; 57240; J2250; J1200; J0690; J2405; J2001; J3010; J1100; J0330; J2704; 80051; 81001; 82565; 84520; 85025; 86850; 86900; 86901; 87086; 93005

== ENCOUNTER → 2021-12-17 | Outpatient (CLI) | payer MEDICARE, OTHER ==
[2021-12-17 18:23] LABS: Basophils # (A) 0.07 X 10*3/uL (0.00-0.10); Eosinophils # (A) 0.09 X 10*3/uL (0.04-0.35); Eosinophils % (A) 1.3 %; HCT 42.4 % (37.2-46.3); HGB 13.2 g/dL (12.0-15.0); Immature Grans, Automated 0.4 %; Lymphocytes % (A) 35.2 %; MCHC 31.1 g/dL (32.0-37.0); MCV 96.4 fL (80.0-97.0); Mean Platelet Volume 10.6 fL (9.5-12.2); Monocytes # (A) 0.27 X 10*3/uL (0.20-1.00); NRBC Per 100 WBC 0 /100 WBCS (0.0-0.0); Neutrophils # (A) 3.96 X 10*3/uL (1.80-7.70); Neutrophils % (A) 58.1 %; Platelet Count 244 X 10*3/uL (140-440); RDW 13.3 % (11.5-14.5); WBC 6.82 X 10*3/uL (4.50-10.00)
== END | disposition home or self-care (01) ==
LOC: LABPAT 12:34
PROVIDERS: ATTEND Obstetrics & Gynecology
DX: Z01.818 Encounter for other preprocedural examination (principal); N34.0 Urethral abscess; R94.31 Abnormal electrocardiogram [ECG] [EKG]
CPT/HCPCS: 85025; 93005

== ENCOUNTER → 2022-01-04 | Outpatient (CLI) | payer MEDICARE, OTHER | END | disposition home or self-care (01) | LOC: LABPAT 12:33 | PROVIDERS: ATTEND Orthopaedic Surgery | DX: Z01.812 Encounter for preprocedural laboratory examination (principal); M17.11 Unilateral primary osteoarthritis, right knee | CPT/HCPCS: 87070 ==

== ENCOUNTER 2022-01-12 09:51 | Day surgery (SDC) | payer MEDICARE, OTHER ==
[~2022-01-12 09:51] MED LIST changes: -ACETAMINOPHEN TAB 500 MG TAB PO ONE; +DEXAMETHASONE SOD PHOSPHATE 4 MG/ML 1 ML VIAL IV ONE; +HYDROmorphone 0.5 MG/0.5 ML SYRINGE IVP PRN; +LACTATED RINGERS 1,000 ML IV SCH; +LIDOCAINE 1% (10MG/ML) FOR IV START INTRADERMA PRN; -MELOXICAM 7.5 MG TAB PO ONE; +ONDANSETRON 4 MG/2 ML VIAL IVP ONE; -TRANEXAMIC ACID 1,000 MG in SODIUM CHLORIDE 0.9% 50 ML IVPB ONE; -ceFAZolin IN SWFI 2 GM/20 ML SYRINGE IVP ONE
[2022-01-12] MEDS ORDERED: fentaNYL (PF) 50 MCG/ML 2 ML AMP ONE (11:19)
[2022-01-12] MEDS ORDERED: KETOROLAC 15 MG/ML 1 ML VIAL ONE (11:19)
[2022-01-12] MEDS ORDERED: MIDAZOLAM 2 MG/2 ML VIAL ONE (11:19)
[2022-01-12] MEDS ORDERED: PROPOFOL 10 MG/ML 20 ML VIAL IV ONE (11:19)
[2022-01-12] MEDS ORDERED: LIDOCAINE 2% INJ 20 MG/ML (2 ML VIAL) ONE (11:19)
--- NOTE | 2022-01-12 11:54 | P.OP ---
Date of Procedure: 01/12/22 Preoperative Diagnosis: 5 cm painful right [place]'s gland abscess Postoperative Diagnosis: Same Procedure(s) Performed: Excision right [place]'s gland abscess Anesthesia: DARRIN Surgeon: Adriana Betancourt Estimated Blood Loss (ml): 10 IV fluids (ml): 400 Urine output (ml): 50 Pathology: other (Skeins gland abscess) Condition: stable Disposition: PACU Description of Procedure: Patient is brought to the operating suite where a general anesthetic is administered without difficulty. The extremities are carefully placed in the Romain stirrups. The cervix, vagina, perineal body are all prepped and draped in usual sterile fashion. Antibiotics are given. The appropriate timeout is performed to assure proper patient and procedural identification. The right skeins gland abscess is identified, superficially scored on the labia majora wi th a #15 blade. Allis clamps are used to hold the skin laterally well the abscess is shelled out in its entirety. The abscess is sent to pathology for evaluation. It is noted to be 5-6 cm in length, approximately 2-3 cm in depth. 2-0 Vicryl is used in an interrupted fashion to close the space. 3-0 undyed Vicryl is used in a subcuticular manner to close the skin. Hemostasis is excellent. The anatomy appears normal after procedure. Basic tracing is placed on the wound. All sponge needle and enhancement counts are correct. Patient is brought back to recovery room in very good condition with stable vital signs including blood pressure 91/50, pulse 54, 98% O2 saturation. Toradol is given prior to leaving the operative suite. She will follow-up with me in the office in 2 weeks.
[2022-01-12 12:21] VITALS: TEMP 97.1
[2022-01-12 12:27] VITALS: RESP 16
[2022-01-12] MEDS ORDERED: IV FLUID CONTINUATION 1,000 ML IV ONE (12:44)
[2022-01-12 13:21] VITALS: BP 157/82; PULSE 63
== END 2022-01-12 13:59 | disposition home or self-care (01) ==
LOC: OR 09:51
PROVIDERS: ATTEND Obstetrics & Gynecology
DX: N34.0 Urethral abscess (principal); M85.80 Other specified disorders of bone density and structure, unspecified site; M19.90 Unspecified osteoarthritis, unspecified site; E78.5 Hyperlipidemia, unspecified; N92.1 Excessive and frequent menstruation with irregular cycle; I34.0 Nonrheumatic mitral (valve) insufficiency; Z98.891 History of uterine scar from previous surgery; Z87.891 Personal history of nicotine dependence; Z96.649 Presence of unspecified artificial hip joint; Z90.710 Acquired absence of both cervix and uterus; Z96.659 Presence of unspecified artificial knee joint; Z98.890 Other specified postprocedural states; Z81.8 Family history of other mental and behavioral disorders; Z83.49 Family history of other endocrine, nutritional and metabolic diseases; Z82.61 Family history of arthritis; Z80.3 Family history of malignant neoplasm of breast; Z80.41 Family history of malignant neoplasm of ovary; Z80.42 Family history of malignant neoplasm of prostate
CPT/HCPCS: 88304; 53270; J2250; J1100; J0690; J2405; J3010; J1885; J2704; J2001

== ENCOUNTER → 2024-02-15 | Outpatient (CLI) | payer MEDICARE, BC | END | disposition home or self-care (01) | LOC: LABPAT 09:58 | PROVIDERS: ATTEND Orthopaedic Surgery | DX: Z01.812 Encounter for preprocedural laboratory examination (principal); Z22.322 Carrier or suspected carrier of Methicillin resistant Staphylococcus aureus; M16.12 Unilateral primary osteoarthritis, left hip | CPT/HCPCS: 87070 ==

== ENCOUNTER 2024-03-07 11:08 | Day surgery (SDC) | payer MEDICARE, BC ==
[2024-02-29 14:49] VITALS: BMI 27.0
--- NOTE | 2024-03-07 07:51 | P.HPOR ---
History of Present Illness H&P Date: 03/07/24 Chief Complaint: Left hip pain The patient is a 78-year-old retired female who presents with progressive left hip pain for the past year. She notes anterior thigh and groin pain with weightbearing activities. She notes she's been limping. She tried medications without much relief. She notes daily pain that limits her significantly. Review of Systems Per HPI Past Medical History Past Medical History: Osteoarthritis (OA) Additional Past Medical History / Comment(s): HX OF FX ARMS & LEG A CHILD., ARTHRITIS HANDS & KNEES., fluid in inner ear @times History of Any Multi-Drug Resistant Organisms: None Reported Past Surgical History: Hysterectomy, Joint Replacement, Orthopedic Surgery, Tonsillectomy Additional Past Surgical History / Comment(s): RT HIP REPLACEMENT, LEFT KNEE ARTHROSCOPY, RT THUMB TRIGGER FINGER, franklin knee replaced Past Anesthesia/Blood Transfusion Reactions: No Reported Reaction, Motion Sickness Additional Past Anesthesia/Blood Transfusion Reaction / Comment(s): MOTION SICKNESS IF READING IN CAR. no hx of blood transfusion Smoking Status: Former smoker - Past Family History Mother Family Medical History: Cancer Additional Family Medical History / Comment(s): BREAST CANCER WITH LIVER METS. Medications and Allergies Home Medications Medication Instructions Recorded Confirmed Type Acetaminophen [Tylenol Arthritis] 325 - 650 mg PO Q6H PRN 01/19/22 02/29/24 History Naproxen Sodium [Aleve] 220 mg PO DAILY PRN 01/19/22 02/29/24 History B.coagulans,Subtilis/C/D3/Zinc 2 each PO DAILY 02/29/24 02/29/24 History [Probiotic-Immune Gummy] Escitalopram [Lexapro] 5 mg PO HS 02/29/24 02/29/24 History Ibuprofen [Motrin] 400 mg PO Q8HR PRN 02/29/24 02/29/24 History Allergies Allergy/AdvReac Type Severity Reaction Status Date / Time No Known Allergies Allergy Verified 02/29/24 14:27 Physical Examination - Hip left Gait: antalgic Tenderness with palpation: anterior Pain with motion: internal rotation and hip flexion ROM: flexion: 80 degrees ROM: internal rotation: 0 degrees ROM: external rotation: 60 degrees Strength: flexion: 5/5 Strength: abduction: 5/5 Tests: impingement tests: positive Results The patient is a well-developed well-nourished female proximal a 5 foot 2, 152 pounds. HEENT exam is nonfocal, neck is supple. She has painful passive motion of the left hip. Clinically she has 1/2 cm shortening of the left lower extremity compared to the right. Her distal neurovascular exam appears intact in left lower extremity. - Diagnostic results Hip x-ray: image reviewed (X-rays of the left hip obtain the office show severe osteoarthrosis with bone on bone changes along with subchondral sclerosis) Assessment and Plan Assessment: Left hip severe osteoarthrosissymptomatic Plan: I talked to the patient at length regarding her condition along with treatment options. At this point she is quite symptomatic having pain and mechanical symptoms related to her left hip posterior arthrosis despite conservative measures. After a thorough discussion she opts to proceed with surgery. We'll plan to proceed with left total hip arthroplasty utilizing an anterior approach. Risks and benefits were discussed at length in layman's terms. We will institute DVT prophylaxis postoperatively.
[~2024-03-07 11:08] MED LIST changes: -DEXAMETHASONE SOD PHOSPHATE 4 MG/ML 1 ML VIAL IV ONE; -LACTATED RINGERS 1,000 ML IV SCH; -LIDOCAINE 1% (10MG/ML) FOR IV START INTRADERMA PRN; -ONDANSETRON 4 MG/2 ML VIAL IVP ONE; +TRANEXAMIC 1,000 MG/100ML-NACL 1,000 MG in SALINE 1 100ML.BAG IVPB PRN
[2024-03-07] MEDS: IV FLUID CONTINUATION 1,000 ML IV ONE (11:59)
[2024-03-07] MEDS: ACETAMINOPHEN TAB 500 MG TAB PO PRN (12:04)
[2024-03-07] MEDS: MELOXICAM 7.5 MG TAB PO PRN (12:05)
[2024-03-07] MEDS: ONDANSETRON 4 MG/2 ML VIAL IVP ONE (12:25)
[2024-03-07] MEDS: DEXAMETHASONE SOD PHOSPHATE 4 MG/ML 1 ML VIAL IV ONE (12:25)
[2024-03-07] MEDS: LACTATED RINGERS 1,000 ML IV SCH (12:26)
[2024-03-07] MEDS: MIDAZOLAM 2 MG/2 ML VIAL IV ONE (12:32)
[2024-03-07] MEDS: fentaNYL (PF) 50 MCG/ML 2 ML AMP IVP PRN (12:32)
[2024-03-07] MEDS ORDERED: PHENYLEPHRINE-0.9% NACL SYG 1,000 MCG/10 ML SYRINGE ONE (12:37)
[2024-03-07] MEDS ORDERED: diphenhydrAMINE 50 MG/ML 1 ML VIAL ONE (12:37)
[2024-03-07] MEDS ORDERED: MIDAZOLAM 2 MG/2 ML VIAL ONE (12:37)
[2024-03-07] MEDS ORDERED: fentaNYL (PF) 50 MCG/ML 2 ML AMP ONE (12:37)
[2024-03-07] MEDS ORDERED: PROPOFOL 10 MG/ML 20 ML VIAL IV ONE (12:37)
[2024-03-07] MEDS ORDERED: TRANEXAMIC 1,000 MG/100ML-NACL PREMIX BAG ONE (12:37)
[2024-03-07] MEDS ORDERED: ROPIVACAINE 5 MG/ML 30 ML VIAL ONE (12:37)
[2024-03-07] MEDS ORDERED: SODIUM CHLORIDE 0.9% (PF) 10 ML VIAL ONE (12:37)
[2024-03-07] MEDS: ceFAZolin 1,000 MG in SODIUM CHLORIDE 0.9% 1,000 ML IRRIGATION ONE (13:14)
[2024-03-07] MEDS: LACTATED RINGERS 1,000 ML IV ONE (14:14)
[2024-03-07] MEDS ORDERED: NALOXONE 0.4 MG/ML 1 ML VIAL IV PRN (14:19)
[2024-03-07] MEDS ORDERED: MAGNESIUM HYDROXIDE 2,400 MG/30 ML CUP PO PRN (14:19)
[2024-03-07] MEDS ORDERED: HYDROmorphone 0.5 MG/0.5 ML SYRINGE IVP PRN ×2 (14:19)
[2024-03-07] MEDS ORDERED: hydrOXYzine pamoate 25 MG CAP PO PRN (14:19)
--- NOTE | 2024-03-07 14:41 | P.OP ---
Date of Procedure: 03/07/24 Preoperative Diagnosis: Left hip severe osteoarthrosis Postoperative Diagnosis: Same Procedure(s) Performed: Left total hip arthroplastypress-fitanterior approach Implants: DePuy Corail size 10-125 degreecollared press-fit femoral stem, 36+1.5 cobalt chrome femoral head, 52 mm [place] acetabular shell with neutral polyethylene liner. I did utilize a 6.5 x 25 mm cancellous screw. Anesthesia: regional, spinal Surgeon: Guilherme Rocha Motion Picture Critic #1: Yadiel Baig Estimated Blood Loss (ml): 200 Pathology: none sent Condition: stable Disposition: PACU Indications for Procedure: The patient is a 78-year-old female who presents with progressive left hip pain secondary to osteoarthrosis despite conservative measures. A discussion of the risks and benefits of operative intervention versus continued conservative measures was made with the patient. She opted to proceed with surgery. Operative risks include infection, neurovascular injury, development of blood clots, fracture, leg length discrepancy, possible component loosening/failure and possible need for subsequent procedures was discussed. Informed consent was obtained. Operative Findings: As below Description of Procedure: The patient was brought to the operating room, and after induction of spinal anesthesia was placed supine on the Ashley table. Positioning was checked with fluoroscopy. The left hip was then prepped and draped in a normal fashion. A 12 cm incision was then made starting 2 fingerbreadths distal and 3 finger breaths posterior to the ASIS in line with the proximal femur. The skin was incised sharply. Subcutaneous tissues were divided sharply. Electrocautery was used for hemostasis. The fascia was split in line with skin incision. The interval between the sartorius and tensor fascia jose was then bluntly developed. The posterior fascia was opened with electrocautery. The lateral circumflex vessels were identified and cauterized prior to sectioning. A retractor was placed along the superior femoral neck as well as the anterior acetabular rim. A wide capsulotomy was performed. The neck cut was then made at a 45 angle to the shaft approximately 1 1/2 cm above the level of the lesser trochanter. The head was extracted. Attention was then paid towards preparing the acetabular. Anterior and posterior retractors were placed. The remaining capsular labral tissue sharply debrided clearly defining the acetabular margins. I began reaming with a 45 mm reamer taking care to initially medialize then reaming at 45 of abduction and 20 of anteversion. Sequential reaming is performed up to 51 mm. A trial 52 mm acetabular shell was inserted in the same orientation and was fully seated. There was good rim fit and stability. Positioning was checked with fluoroscopy. The final 52 mm acetabular shell was inserted again at 45 of abduction and 20 of anteversion. This was fully seated. There was good rim fit and stability. I did place a posterior superior 6.5 mm x 25 mm cancellous screw with good purchase for additional fixation. Again fluoroscopy was used to check the adequacy of placement. A neutral polyethylene liner was gently impacted. Care was taken to avoid any soft tissue interposition. Pulsatile lavage was utilized. Attention was then paid towards preparing the proximal femur. The central region was cleared of soft tissue. A canal finder was used to find the femoral canal. Sequential broaching was performed up to size 10 taking care to lateralize proximally. A calcar mill was used to fashion the medial calcar. There was good rotational stability. A 125 degree neck along with a 36 mm +1.5 head was placed. The hip was gently reduced. Fluoroscopy was used to check the adequacy of positioning along with leg lengths. I felt both were good. The hip was gently dislocated. The trial components were removed. The final size 10 collared 125 degree press-fit femoral stem was inserted parallel to the posterior cortex. This was fully seated and there was good rotational stability. A 36 mm +1.5 head was placed. This was gently impacted. The hip was then gently reduced. Final fluoroscopic view showed adequate placement implant along with buddhism of leg length. Stability was checked with 80 of external rotation and 60 of extension of the right hip. The wound was irrigated with sterile lavage. The fascia was closed with running 0 Vicryl suture. There was minimal drainage therefore a deep drain was not placed. The second dose of IV TXA was given. The subcutaneous tissues were reapproximated interrupted 2-0 Vicryl sutures. The skin was reapproximated with 3-0 subcuticular strata fix suture. Skin tape and adhesive was applied. A sterile dressing was applied. The patient was then awoken from sedation and transferred to recovery room in good condition. Blood loss was estimated at 200 mL. No complications were incurred. Sponge and needle counts were correct at the end of the case. Yadiel NG assisted during the major components is case to include exposure, bone resection, implantation, and closure.
--- NOTE | 2024-03-07 14:56 | XR ---
EXAMINATION TYPE: XR Hip Limited LT DATE OF EXAM: 03/07/2024 CLINICAL HISTORY: Postoperative evaluation TECHNIQUE: Single portable view of the left hip was submitted. FINDINGS: Noted are changes of total hip arthroplasty with femoral and acetabular components appearin g well seated. Alignment is anatomic. Postsurgical soft tissue changes are evident. IMPRESSION: Satisfactory postoperative alignment [facility] Za[facility]arreal, , 03/07/2024 2:54 PM
--- NOTE | 2024-03-07 15:25 | FL ---
EXAMINATION TYPE: FL guidance operating room, XR Hip Limited LT DATE OF EXAM: 03/07/2024 2:16 PM COMPARISON: Pre Operative Images if available both CT/MRI or plain film CLINICAL INDICATION: Female, 78 years old with history of Left Hip-Ant; TECHNIQUE: FL guidance operating room, XR Hip Limited LT, multiple fluoroscopic images provided for p rocedure. Total fluoroscopy time: 27 seconds Total submitted images to PACS: 1 DAP: 0.6737 mGym2 Gycm2 uGym2 cGycm2 or equivalent. FINDINGS: Fluoroscopic images during internal fixation/arthroplasty demonstrate fixation hardware in appropriat e position. Hardware appears intact. No immediate complication identified. IMPRESSION: 1. No evidence for intraoperative complication. 2. Please see the operative/procedural note for further details. [facility], , 03/07/2024 3:23 PM
--- NOTE | 2024-03-07 16:11 | P.ANPRN ---
Procedure Note - Anesthesia - Nerve Block Performed Left Phillip Single Time Out Performed: Yes (1231) Date of Procedure: 03/07/24 Procedure Start Time: 12:32 Procedure Stop Time: 12:36 Location of Patient: PreOp Indication: Acute Post-Operative Pain, Requested by Surgeon Specifically requested for management of pain by DrAmie: Guilherme Rocha Sedation Type: Sedate with meaningful contact maintained Preparation: Sterile Prep Position: Supine Catheter: None Needle Types: Pajunk Needle Gauge: 21 Ultrasound used to visualize needle placement: Yes Ultrasound used to observe medication spread: Yes Injectate: 0.5% Ropivacaine (see comment for volume) (30cc) Blood Aspirated: No Pain Paresthesia on Injection Noted: No Resistance on Injection: Normal Image Stored and Saved: Yes Events: Uneventful and Well Tolerated
[2024-03-07] MEDS: fentaNYL (PF) 50 MCG/ML 2 ML AMP IVP STA (16:32)
[2024-03-07] MEDS: HYDROcodone/APAP 5-325MG 1 EACH TAB PO PRN (18:09)
--- NOTE | 2024-03-07 20:24 | P.CONS ---
History of Present Illness - Reason for Consult Consult date: 03/07/24 Medical management Requesting physician: Guilherme Rocha - Chief Complaint Left hip surgery - History of Present Illness This is a pleasant 78-year-old patient who follows with Daisha gibbons [facility] with Dr. Tipton. Patient does take medication for osteoarthritis and anxiety. Denies any cardiac history. Patient has undergone left hip hemiarthroplasty. Postprocedure no nausea vomiting. Pain is controlled. No cardiac symptoms. Patient did eat a very light supper. Review of systems: GEN.: Tired EYES: None HEENT: None NECK: None RESPIRATORY: None CARDIOVASCULAR: None GASTROINTESTINAL: None GENITOURINARY: None MUSCULOSKELETAL: [Joint pains LYMPHATICS: None HEMATOLOGICAL: None PSYCHIATRY: None NEUROLOGICAL: None Social history: Lives with her . Smoked for 25 years less than half a pack a day stopped in 2005. Drinks about 5-7 drinks per week. Physical examination: VITAL SIGNS: 97.5, 83, 16, 111 x 67, 97% room air GENERAL: BMI 27.4, reclining bed awake comfortable. EYES: Pupils equal. Conjunctiva brigido l. HEENT: External appearance of nose and ears normal, oral cavity grossly normal. NECK: JVD not raised; masses not palpable. HEART: First and second heart sounds are normal; no edema. LUNGS: Respiratory rate normal; clear to auscultation. ABDOMEN: Soft, nontender, liver spleen not palpable, no masses palpable. PSYCH: Alert and oriented x3; mood and affect brigido l. MUSCULOSKELETAL:No Clubbing/cyanosis;muscles-grossly intact. OA. Incisional left hip incision site NEUROLOGICAL: Cranial nerves grossly intact; no facial asymmetry, power and sensation grossly intact. LYMPHATICS: No lymph nodes palpable in the axilla and neck Investigations: No labs available Assessment plan: -Left total hip arthroplasty IV cefazolin for infection prophylaxis. Received 1 dose of Decadron. On Xarelto for DVT prophylaxis. -Primary osteoarthritis Use pain medication as needed -Anxiety not otherwise specified Lexapro Care was discussed with the patient. Questions answered. Thank you Dr. Rocha Past Medical History Past Medical History: Osteoarthritis (OA) Additional Past Medical History / Comment(s): HX OF FX ARMS & LEG A CHILD., ARTHRITIS HANDS & KNEES., fluid in inner ear @times History of Any Multi-Drug Resistant Organisms: None Reported Past Surgical History: Hysterectomy, Joint Replacement, Orthopedic Surgery, Tonsillectomy Additional Past Surgical History / Comment(s): RT HIP REPLACEMENT, LEFT KNEE ARTHROSCOPY, RT THUMB TRIGGER FINGER, franklin knee replaced Past Anesthesia/Blood Transfusion Reactions: No Reported Reaction, Motion Sickness Additional Past Anesthesia/Blood Transfusion Reaction / Comm: MOTION SICKNESS IF READING IN CAR. no hx of blood transfusion Past Psychological History: Anxiety Smoking Status: Former smoker Past Alcohol Use History: Occasional Additional Past Alcohol Use History / Comment(s): SMOKED FOR 25 YEARS, < 1/2 PPD., QUIT 2006 YEARS AGO. DRINKS APPROX 5-7 DRINKS PER WEEK. Past Drug Use History: None Reported - Past Family History Mother Family Medical History: Cancer Additional Family Medical History / Comment(s): BREAST CANCER WITH LIVER METS. Medications and Allergies Home Medications Medication Instructions Recorded Confirmed Type Acetaminophen [Tylenol Arthritis] 325 - 650 mg PO Q6H PRN 01/19/22 03/07/24 History Naproxen Sodium [Aleve] 220 mg PO DAILY PRN 01/19/22 03/07/24 History B.coagulans,Subtilis/C/D3/Zinc 2 each PO DAILY 02/29/24 03/07/24 History [Probiotic-Immune Gummy] Escitalopram [Lexapro] 5 mg PO HS 02/29/24 03/07/24 History Ibuprofen [Motrin] 400 mg PO Q8HR PRN 02/29/24 03/07/24 History Allergies Allergy/AdvReac Type Severity Reaction Status Date / Time No Known Allergies Allergy Verified 03/07/24 11:47 Physical Exam Vitals: Vital Signs Temp Pulse Resp BP Pulse Ox 03/07/24 16:48 83 111/67 97 03/07/24 16:31 65 131/77 98 03/07/24 16:17 63 129/74 99 03/07/24 16:01 70 131/82 03/07/24 15:43 97.5 F L 68 17 115/75 97 03/07/24 15:30 56 L 18 119/52 96 03/07/24 15:15 57 L 18 123/56 96 03/07/24 15:00 60 18 109/57 96 03/07/24 14:45 68 18 111/51 96 03/07/24 14:35 97.3 F L 74 14 95/55 96 03/07/24 12:40 74 16 115/74 95 03/07/24 12:20 97.2 F L 70 16 132/82 97 Intake and Output 03/07/24 03/07/24 03/07/24 06:59 14:59 22:59 Intake Total 1151 Output Total 200 Balance 951 Intake: IV 1151 Output: Estimated Blood Loss 200 Other: Weight 69 kg 69 kg
[2024-03-07] MEDS: ESCITALOPRAM 5 MG TAB PO SCH (21:22)
[2024-03-07] MEDS: SENNOSIDES-DOCUSATE SODIUM 1 EACH TAB PO SCH (21:22)
[2024-03-08] MEDS: HYDROcodone/APAP 7.5-325MG 1 EACH TAB PO PRN (00:58)
[2024-03-08 08:31] VITALS: BP 105/69; PULSE 69; RESP 17; TEMP 97.9
[2024-03-08 08:38] LABS: Basophils # (A) 0.02 X 10*3/uL (0.00-0.10); Basophils % (A) 0.2 %; Eosinophils # (A) 0 X 10*3/uL (0.04-0.35); Eosinophils % (A) 0 %; HCT 31.1 % (37.2-46.3); HGB 10.2 g/dL (12.0-15.0); Lymphocytes # (A) 1.65 X 10*3/uL (0.90-5.00); Lymphocytes % (A) 18.8 %; MCH 30.4 pg (27.0-32.0); MCHC 32.8 g/dL (32.0-37.0); MCV 92.8 FL (80.0-97.0); Mean Platelet Volume 10.5 FL (9.5-12.2); Monocytes # (A) 0.72 X 10*3/uL (0.20-1.00); Monocytes % (A) 8.2 %; NRBC Per 100 WBC 0 X 10*3/uL (0.00-0.01); Neutrophils # (A) 6.36 X 10*3/uL (1.80-7.70); Neutrophils % (A) 72.5 %; Platelet Count 194 X 10*3/uL (140-440); RBC 3.35 X 10*6/uL (4.10-5.20); RDW 13.3 % (11.5-14.5); WBC 8.78 X 10*3/uL (4.50-10.00)
[2024-03-08] MEDS: RIVAROXABAN 10 MG TAB PO SCH (10:03)
[2024-03-08] MEDS: LACTOBACILLUS ACIDOPHILUS/PECT 1 EACH CAPSULE PO SCH (10:04)
--- NOTE | 2024-03-08 11:23 | P.DS ---
Providers Date of admission: 03/07/2024 Expected date of discharge: 03/08/24 Attending physician: Guilherme Rocha Consults: 03/07/24 14:19 Consult Physician Routine Consulting Provider: Italo Leonard Consult Reason/Comments: medical management s/p right total hip arthroplasty Do you want consulting provider notified?: Yes Primary care physician: [facility] Course: Date of admission: 03/07/2024 Date of discharge: 03/08/2024 Admission diagnosis: Left hip osteoarthritis Discharge diagnosis: Same Attending physician: Dr. Rocha Surgical procedures: Direct anterior left total hip arthroplasty Brief history: Patient is a 78-year-old female with a history of progressive primary left hip osteoarthritis. At this point patient has failed conservative treatment measures and has opted to proceed with a elective direct anterior left total hip arthroplasty. Hospital course: Details of patient's surgery can be found in operative report. Patient tolerated the procedure well and was subsequently transported to orthopedic floor. Patient's orthopeidc and medical care was provided daily. Patient had daily laboratory tests performed for evaluation of overall blood counts. Patient had daily physical therapy to include strengthening range of motion as well as education with walker ambulation. Patient was treated with Xarelto for their postoperative DVT prophylaxis during their inpatient stay. Patient was noted to have a relatively uneventful postoperative course. Patient reported satisfactory pain control with oral pain medications by postoperative d ay 1. Patient showed satisfactory progress with physical therapy. Patient moved steadily through the program and had no difficulty meeting the goals by postoperative day 1. Given patient's otherwise satisfactory course and having met physical therapy goals, plan is to discharge patient home with health services on postoperative day 1. Discharge condition/disposition: Patient will be discharged home with health services in stable condition. Discharge medications: Instructions are given on resumption of patient's normal daily medications per primary care recommendation, in addition patient will be prescribed [place] 5 mg/325 mg; senna; aspirin 80 mg twice a day 30 days. Discharge instructions: 1. Wound care and infection precautions, keep incision dry and covered while showering, no lotions, creams, moisturizers. No soaking, tubs, pools, hottubs. Do not scrub over the incision. 2. Weight-bear as tolerated with walker / cane until follow-up. 3. Ice and elevate when necessary. Do not exceed 20 minutes per hour with ice pack. 4. Utilize compression sleeve until seen at first follow up appointment. 5. Visiting nursing care. 6. Home physical therapy. 7. Pain meds and anticoagulants per prescription. 8. Pain medication has potential to cause constipation. Increase oral fluid and fiber intake. Contact primary care provider if you have not had a bowel movement within 48 hours after discharge 9. No anti-inflammatory medication until discussed at first post operative visit, this including Motrin, Aleve, Mobic, Diclofenac. 10. Follow up in office at 2 weeks postop with Jerry Abreu PA-C / Yadiel Baig PA-C 11. Follow up with your primary care doctor 7-10 days after discharge. 12. Contact [facility] with any questions, . Assessment: Left hip osteoarthritis Procedures: Direct anterior left total hip arthroplasty Patient Condition at Discharge: Good Plan - Discharge Summary Discharge Rx Participant: Yes New Discharge Prescriptions: New HYDROcodone/APAP 7.5-325MG [[place] 7.5-325] 1 tab PO Q6HR PRN #28 tab PRN Reason: Pain Aspirin [Adult Low Dose Aspirin EC] 81 mg PO BID #60 tab Sennosides/Docusate Sodium [Senna Plus 8.6-50 mg Softgel] 1 each PO DAILY #20 capsule No Action Naproxen Sodium [Aleve] 220 mg PO DAILY PRN PRN Reason: Pain Acetaminophen [Tylenol Arthritis] 325 - 650 mg PO Q6H PRN PRN Reason: Pain Ibuprofen [Motrin] 400 mg PO Q8HR PRN PRN Reason: Pain Escitalopram [Lexapro] 5 mg PO HS B.coagulans,Subtilis/C/D3/Zinc [Probiotic-Immune Gummy] 2 each PO DAILY Discharge Medication List Acetaminophen [Tylenol Arthritis] 325 - 650 mg PO Q6H PRN 01/19/22 [History] Naproxen Sodium [Aleve] 220 mg PO DAILY PRN 01/19/22 [History] B.coagulans,Subtilis/C/D3/Zinc [Probiotic-Immune Gummy] 2 each PO DAILY 02/29/24 [History] Escitalopram [Lexapro] 5 mg PO HS 02/29/24 [History] Ibuprofen [Motrin] 400 mg PO Q8HR PRN 02/29/24 [History] Aspirin [Adult Low Dose Aspirin EC] 81 mg PO BID #60 tab 03/08/24 [Rx] HYDROcodone/APAP 7.5-325MG [[place] 7.5-325] 1 tab PO Q6HR PRN #28 tab 03/08/24 [Rx] Sennosides/Docusate Sodium [Senna Plus 8.6-50 mg Softgel] 1 each PO DAILY #20 capsule 03/08/24 [Rx] Follow up Appointment(s)/Referral(s): Yadiel Baig PAC [PHYSICIAN FACETOR] - 2 Weeks [facility] [NON-STAFF] - 1-2 Days ([facility] will call you to schedule your in home nursing and physical therapy visits. ) Patient Instructions/Handouts: Anterior Hip Replacement (DC), Anterior Hip Replacement (GEN) Activity/Diet/Wound Care/Special Instructions: Orthopedic Discharge Instructions: 1. Wound care and infection precautions, keep incision dry and covered while showering, no lotions, creams, moisturizers. No soaking, pools, hot tubs. Do not scrub over incision. 2. Weight-bear as tolerated with walker / cane until follow-up. 3. Ice and elevate when necessary. Do not exceed 20 minutes per hour with ice pack. 4. Utilize compression sleeve until seen at first follow up appointment. 5. Pain meds and anticoagulants per prescription. 6. Pain medication has potential to cause constipation. Increase oral fluid and fiber intake. Contact primary care provider if you have not had a bowel movement within 48 hours after discharge. 7. No anti-inflammatory medication until discussed at first post operative visit, this including Motrin, Aleve, Mobic, Diclofenac. 8. Follow up in office at 2 weeks postop with Jerry Abreu PA-C / Yadiel Baig PA-C 9. Follow up with your primary care doctor 7-10 days after discharge. 10. Contact [facility] with any questions, . Keep incision clean, dry, intact. While showering, cover fusion tape with Saran wrap. Keep fusion tape on until follow-up appointment in office in 2 weeks Discharge Disposition: HOME WITH HOME HEALTH SERVICES
--- NOTE | 2024-03-08 11:26 | P.PN ---
Subjective Progress Note Date: 03/08/24 Principal diagnosis: Left hip osteoarthritis Patient was seen at bedside this morning sitting up in chair with dressing present over left hip. Patient says she does have a walker for home. Patient hoping to go home today. Patient says she did do stairs this morning with therapy and has been walking around the room using walker under own power. Patient states she has urinated since surgery yesterday without issue. Patient says no bowel movement yet, however, patient says she has been passing gas. Patient denies any other issues at this time. Objective - Vital Signs Vital signs: Vital Signs Temp 97.9 F 03/08/24 07:29 Pulse 69 03/08/24 07:29 Resp 17 03/08/24 07:29 BP 105/69 03/08/24 07:29 Pulse Ox 93 L 03/08/24 07:29 FiO2 Intake & Output 03/07/24 03/08/24 03/08/24 18:59 06:59 18:59 Intake Total 1151 40 Output Total 200 Balance 951 40 Weight 69 kg Intake: IV 1151 Intake, IV Titration 40 Amount Lactated Ringers 1,000 ml 40 @ 20 mls/hr IV .Q24H JOSE MIGUEL Rx#:[id number] Output: Estimated Blood Loss 200 Other: Voiding Method Toilet # Voids 2 - Exam Left hip: Incision is clean, dry, and intact. The exofin fusion tape is in good condit ion. There is minimal soft tissue swelling and ecchymosis surrounding the medial and lateral aspects of the incision. Calf is soft, no tenderness with palpation. Plantar flexion, dorsiflexion, EHL, FHL are intact. Sensory exam to light touch throughout the extremity is intact, dorsal pedis pulses 2+. - Labs CBC & Chem 7: 03/08/24 03:47 Labs: Abnormal Lab Results - Last 24 Hours (Table) 03/08/24 Range/Units 03:47 RBC 3.35 L (4.10-5.20) X 10*6/uL Hgb 10.2 L (12.0-15.0) g/dL Hct 31.1 L (37.2-46.3) % Eosinophils # 0 L (0.04-0.35) X 10*3/uL Assessment and Plan Assessment: 1. Left hip osteoarthritis - Postoperative day 1 status post direct anterior left total hip arthroplasty Plan: 1. Left hip osteoarthritis - direct anterior left total hip arthroplasty performed yesterday, 03/07/2024. Patient stable at bedside this morning. Patient does have a walker home. Patient perform stairs with therapy this morning. Discharge home today with health services. 2. Appreciate medical management 3. Pain management - [place] 4. GI prophylaxis - senna 5. DVT prophylaxis - [facility]. Going home with aspirin 81 mg twice a day 30 days 6. PT/OT - weightbearing as tolerated with walker 7. Encourage incentive spirometer use 8. Discharge planning - home today with health services Time with Patient: Less than 30
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
== END 2024-03-08 13:07 | disposition home health service (06) ==
LOC: OR 11:08 → 4SSUR 14:32 → OR 03-08 13:07
PROVIDERS: ATTEND Orthopaedic Surgery
DX: M16.12 Unilateral primary osteoarthritis, left hip (principal); F41.9 Anxiety disorder, unspecified; Z79.899 Other long term (current) drug therapy; Z96.641 Presence of right artificial hip joint; Z96.653 Presence of artificial knee joint, bilateral; Z87.891 Personal history of nicotine dependence
CPT/HCPCS: 27130; 97161; 97535; 97165; 64999; 86900; 86901; 85025; 86850; 73501; C1776; J2250; J1200; J1100; J0690 ×3; J2405; J3010; J2795; J2704; J2371; 64447